=== PATIENT | female | born 2000 | race Caucasian/White ===

== ENCOUNTER 2025-09-26 13:34 | Emergency (ER) | payer BC ==
[2025-09-26 14:53] LABS: #Basophils 0.05 10x3/uL (0.0-0.2); #Eosinophils 0.19 10x3/uL (0.0-0.7); #Monocytes 0.51 10x3/uL (0.11-0.59); #Neutrophils 4.39 10x3/uL (1.40-6.50); %Basophils 0.7 % (0.0-1.0); %Eosinophils 2.5 % (0.0-10.0); %Lymphocytes 32.9 % (21.0-51.0); %Monocytes 6.6 % (0.0-10.0); %Neutrophils 57.0 % (42.0-75.0); Hematocrit 38.4 % (36.0-47.0); Hemoglobin 11.8 g/dL (12.0-16.0); Mean Corpuscular Hemoglobin 23.4 pg (27.0-31.0); Mean Corpuscular Volume 76.0 fL (78.0-98.0); Platelet Count 295 10x3/uL (130-400); Red Blood Cell (RBC) Count 5.05 mill/uL (4.20-5.40); White Blood Cell (WBC) Count 7.69 10x3/uL (4.8-10.8)
[2025-09-26 15:12] LABS: ALT (SGPT) 77 U/L (Less than 34); AST (SGOT) 69 U/L (11-34); Albumin 3.9 g/dL (3.1-4.5); Alkaline Phosphatase 60 U/L (40-110); Anion Gap 14 mmol/L (10-20); BUN (Urea Nitrogen) 11 mg/dL (7.0-18.7); Bilirubin, Total 0.3 mg/dL (0.3-1.2); Calc. Creatinine Clearance 0 mL/min (70-130); Calcium 8.8 mg/dL (7.8-10.44); Carbon Dioxide 22 mmol/L (22-29); Chloride 106 mmol/L (98-107); Globulin 4.1 g/dL (2.4-3.5); Glucose 111 mg/dL (70-105); Potassium 4.9 mmol/L (3.5-5.1); Sodium 137 mmol/L (136-145)
[2025-09-26 15:55] LABS: BHCG - Serum Negative (NEGATIVE); Pregs Control Background? CLEAR/WHITE (CLR/WHITE); Pregs Control Bar Appear? YES (CONTROL BAR)
[2025-09-26 15:55] LABS: Bacteria/HPF None Seen HPF (None Seen); CAUTI Indications for Culture Pelvic or flank pain; Glucose, Urine (Dipstick) Normal (Negative); Leukocyte Negative Leu/uL (Negative); Protein, Urine (Dipstick) 20 mg/dL (Neg-Trace); RBC/HPF 0-3 HPF (0-3); Specific Gravity, Urine 1.027 (1.002-1.036); WBC/HPF 0-3 HPF (0-3)
[2025-09-26 15:57] LABS: Urine Culture Reflex No No
== END 2025-09-26 16:35 | disposition home or self-care (01) ==
LOC: ERS 13:34
DX: D64.9 Anemia, unspecified (principal); I10 Essential (primary) hypertension; R29.700 NIHSS score 0
CPT/HCPCS: 80053; 81001; 84484; 84703; 85025; 93005; 94760; 99284